=== PATIENT | female | born 1975 | race Caucasian/White ===

== ENCOUNTER → 2023-06-24 | Outpatient (CLI) | payer OTHER | END | disposition home or self-care (01) | LOC: RAH 07:11 | PROVIDERS: ATTEND Internal Medicine Gastroenterology | DX: R10.13 Epigastric pain (principal); R11.0 Nausea | CPT/HCPCS: 78264; A9541 ==

== ENCOUNTER 2023-08-27 11:36 | Emergency (ER) | payer OTHER ==
[~2023-08-27] VITALS: Ht 165.1 cm; Wt 68.9 kg
[2023-08-27 12:17] LABS: BASOPHILS # (AUTO) 0.09 K/uL (0.00-0.20); BASOPHILS % (AUTO) 0.9 % (0.0-5.0); HEMATOCRIT 44.1 % (36-48); IMMATURE GRANULOCYTE ABSOLUTE 0.03 K/uL (0-1); LYMPHOCYTES # (AUTO) 3.9 K/uL (1.0-4.8); LYMPHOCYTES % (AUTO) 39.1 % (21.0-51.0); MEAN CORPUSCULAR HEMOGLOBIN 30.1 pg (27.0-33.0); MEAN CORPUSCULAR HGB CONC 32.7 g/dL (32.0-36.0); MEAN CORPUSCULAR VOLUME 92.1 fL (79-99); MONOCYTES # (AUTO) 0.8 K/uL (0.1-1.0); MONOCYTES % (AUTO) 7.6 % (3.0-13.0); NEUTROPHILS # (AUTO) 4.7 K/uL (1.8-7.7); NEUTROPHILS % (AUTO) 47.1 % (40.0-77.0); PLATELET COUNT (AUTO) 261 K/uL (130-400); RED BLOOD CELL COUNT(AUTO) 4.79 MIL/uL (4.00-5.50); RED CELL DISTRIBUTION WIDTH 11.8 % (11.0-15.5)
[2023-08-27 12:42] LABS: CREATININE 0.8 mg/dL (0.5-1.0); POTASSIUM 3.8 mmol/L (3.5-5.1)
[2023-08-27 12:47] LABS: ALBUMIN 3.8 g/dL (3.5-5.0); BILIRUBIN,TOTAL 0.7 mg/dL (0.2-1.0); TOTAL PROTEIN, SERUM 8.2 g/dL (6.0-8.3)
[2023-08-27] MEDS ORDERED: IOHEXOL 350 MG/ML 100ML INFUS..BTL IV ONE (14:42)
[2023-08-27] MEDS: LACTATED RINGERS 1000ML 1,000 ML IV ONE (14:43)
[2023-08-27] MEDS: ONDANSETRON 4MG INJ IVP ONE (14:43)
[2023-08-27] MEDS: MORPHINE 4 MG SYG IVP ONE (14:43)
[2023-08-27 15:14] VITALS: BP 122/75; PULSE 78; RESP 22; O2SAT 99
[2023-08-27] MEDS: DICYCLOMINE HCL 10 MG/5 ML ML PO ONE (16:30)
[2023-08-27] MEDS: KETOROLAC 30MG VIAL (30MG/ML) IVP ONE (16:30)
[2023-08-27] MEDS: LIDOCAINE HCL 2% VISCOUS 15 ML UDCUP PO ONE (16:30)
[2023-08-27] MEDS: FAMOTIDINE 20MG VIAL IV ONE (16:30)
[2023-08-27] MEDS: MAG/ALUM/SIMETH 30 ML UDCUP PO ONE (16:30)
[2023-08-27] MEDS ORDERED: ONDA4TAB10 PO (17:38)
[2023-08-27] MEDS ORDERED: FAMO20TA8 PO (17:38)
== END 2023-08-27 17:54 | disposition home or self-care (01) ==
LOC: EDH 11:36
DX: R10.10 Upper abdominal pain, unspecified (principal); K31.84 Gastroparesis; R10.13 Epigastric pain; Z90.49 Acquired absence of other specified parts of digestive tract
CPT/HCPCS: 99285; 74177; 96374; 96375; 76705; 71045; 96361; 84484; 80053; 83690; 85025; 81025; 36415; 93005; J7120; J3490; J2405; J2270; J1885; Q9967